=== PATIENT | female | born 1935 | race Caucasian/White ===

== ENCOUNTER 2018-01-27 07:38 | Emergency (ER) | payer MEDICARE, BC ==
[2018-01-27 08:43] LABS: CHLORIDE,CL 102 mmol/L (98-107); SODIUM,NA 138 mmol/L (136-145)
[2018-01-27 08:47] VITALS: BP 140/77
--- NOTE | 2018-01-27 09:06 | EDM.PDOC ---
ED HPI GENERAL MEDICAL PROBLEM - General Chief Complaint: Back Pain or Injury Stated Complaint: back pain Time Seen by Provider: 01/27/18 08:10 Source of Information: Reports: Patient History Limitations: Reports: No Limitations - History of Present Illness INITIAL COMMENTS - FREE TEXT/NARRATIVE: Patient is a 83-year-old female who was brought in by a friend with chief complaint of back pain apparently the patient and night bit her tongue and it was noted that the cheeks or bloody stool and brought her in for evaluation at this time the patient admits to history of seizure disorder about 6-7 years ago she was placed gabapentin 300 twice a day and was seizure-free until now I feel that this was a seizure secondary to symptoms that she presented bleeding from the tongue and back pain from spasming at this time we will change her medications and to CBC and BMP Onset: Today Duration: Hour(s):, Improving Location: Reports: Back Quality: Reports: Ache, Burning Severity: Moderate Improves with: Reports: Cold Therapy, Heat Therapy, Other (Put icy hot on her back and took Tylenol) Worsens with: Reports: Movement Context: Reports: Other (Seizure) Treatments 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(s) Upper Posterior Back Pain Score (Numeric/FACES): 7 - Related Data Allergies Allergy/AdvReac Type Severity Reaction Status Date / Time rosuvastatin calcium Allergy Unknown abdominal Verified 06/18/15 08:11 [From Crestor] pain and bloating atorvastatin calcium Allergy muscle pain Verified 06/18/15 08:11 [From Lipitor] cholestyramine Allergy Unknown Verified 06/18/15 08:11 [From Questran] diltiazem Allergy Unknown Verified 06/18/15 08:11 estrogens, conjugated Allergy Unknown Verified 06/18/15 08:11 [From Premarin] imipramine [Imipramine] Allergy Unknown Verified 06/18/15 08:11 Latex, Natural Rubber Allergy Rash Verified 06/18/15 08:11 nitrofurantoin Allergy Unknown Verified 06/18/15 08:11 Penicillins Allergy rash, hives Verified 06/18/15 08:11 phenytoin sodium Allergy Dizziness Verified 06/18/15 08:11 [From Dilantin] phenytoin sodium extended Allergy unknown Verified 06/18/15 08:11 [From Dilantin] sucrose [From Questran] Allergy Unknown Verified 06/18/15 08:11 Home Meds: Home Meds Acetaminophen [Tylenol Extra Strength] 2 tab PO Q6HR PRN 08/13/14 [History] Aspirin [Halfprin] 81 mg PO BEDTIME 08/13/14 [History] Calcium Citrate/Vitamin D3 [Calcium Citrate - Vit D Caplet] 1 tab PO DAILY@1200 08/13/14 [History] Gabapentin [Neurontin] 300 mg PO BID 08/13/14 [History] Levothyroxine [Synthroid] 88 mcg PO ACBRK 08/13/14 [History] Lutein 1 tab PO DAILY 08/13/14 [History] Metoprolol Succinate [Toprol XL] 50 mg PO QAM 08/13/14 [History] [place]-3 Fatty Acids [[place]-3] 1 cap PO BEDTIME 08/13/14 [History] Omeprazole [Prilosec] 20 mg PO DAILY PRN 08/13/14 [History] Ubidecarenone [Coenzyme Q10] 100 mg PO BEDTIME 08/13/14 [History] Past Medical History Cardiovascular History: Reports: Hypertension Gastrointestinal History: Reports: GERD Musculoskeletal History: Reports: Arthritis Neurological History: Reports: Seizure Endocrine/Metabolic History: Reports: Hypothyroidism Other Dermatologic History: epidermal cyst - Infectious Disease History Infectious Disease History: Reports: Chicken Pox, Measles, Mumps, Rubella, Scarlet Fever - Past Surgical History GI Surgical History: Reports: Appendectomy, Colonoscopy, EGD Social & Family History - Tobacco Use Smoking Status *Q: Never Smoker - Caffeine Use Caffeine Use: Reports: Coffee - Alcohol Use Days Per Week of Alcohol Use: 0 - Recreational Drug Use Recreational Drug Use: No ED ROS GENERAL - Review of Systems Review Of Systems: See Below Constitutional: Reports: No Symptoms HEENT: Reports: No Symptoms Respiratory: Reports: No Symptoms Cardiovascular: Reports: No Symptoms Endocrine: Reports: No Symptoms GI/Abdominal: Reports: No Symptoms : Reports: No Symptoms Musculoskeletal: Reports: Back Pain (Secondary to) Skin: Reports: No Symptoms Neurological: Reports: Seizure (History of seizure) Psychiatric: Reports: No Symptoms Immunologic: Reports: No Symptoms ED EXAM, GENERAL - Physical Exam Exam: See Below Exam Limited By: No Limitations General Appearance: Alert, WD/WN, No Apparent Distress Ears: Normal External Exam, Normal Canal, Hearing Grossly Normal, Normal TMs Nose: Normal Inspection, Normal Mucosa, No Blood Throat/Mouth: Inflammation (Inflammation of tongue secondary to bite), Other ( Blood). No: Normal Oropharynx (Patient had bite jesus on her tongue) Head: Atraumatic, Normocephalic Neck: Normal Inspection, Supple, Non-Tender, Full Range of Motion Respiratory/Chest: No Respiratory Distress, Lungs Clear, Normal Breath Sounds, No Accessory Muscle Use, Chest Non-Tender Cardiovascular: Normal Peripheral Pulses, Regular Rate, Rhythm, No Edema, No Gallop, No JVD, No Murmur, No Rub GI/Abdominal: Normal Bowel Sounds, Soft, Non-Tender, No Organomegaly, No Distention, No Abnormal Bruit, No Mass (Female) Exam: Deferred Rectal (Female) Exam: Deferred Back Exam: Normal Inspection, Decreased Range of Motion, Muscle Spasm Extremities: Normal Inspection, Normal Range of Motion, Non-Tender, Normal Capillary Refill, No Pedal Edema Neurological: Alert, Oriented, CN II-XII Intact, Normal Cognition, Normal Gait, Normal Reflexes, No Motor/Sensory Deficits Psychiatric: Normal Affect, Normal Mood Skin Exam: Warm, Dry, Intact, Normal Color, No Rash Lymphatic: No Adenopathy ED GENERAL MEDICAL PROCEDURES - Additional/Other Procedure(s) Other (Free Text) Procedure(s): Assessment polycythemia we will go ahead and do a phlebotomy about 500 mL's secondary to polycythemia hemoglobin 18.3 hematocrit 54.5 patient will be referred to hematology oncology for further workup Course - Vital Signs Last Recorded V/S: Last Vital Signs Temp 97.9 F 01/27/18 07:38 Pulse 93 01/27/18 08:46 Resp 20 01/27/18 08:46 BP 140/77 01/27/18 08:46 Pulse Ox 94 L 01/27/18 08:46 - Orders/Labs/Meds Orders: Active Orders 24 hr Category Date Time Status Communication Order [RC] STAT Care 01/27/18 08:55 Ordered CBC WITH AUTO DIFF [HEME] Stat Lab 01/27/18 08:59 Ordered UA W/MICROSCOPIC [URIN] Stat Lab 01/27/18 08:10 Ordered Labs: Laboratory Tests 01/27/18 01/27/18 Range/Units 08:20 08:20 WBC 24.4 H (4.0-10.2) K/uL RBC 6.25 H (3.77-5.09) M/uL Hgb 18.3 H* (11.7-15.5) g/dL Hct 54.5 H (34.0-46.0) % MCV 87.2 (84.0-98.0) fL MCH 29.3 (28.2-33.3) pg MCHC 33.6 (31.7-36.0) g/dL RDW 16.2 H (11.2-14.1) % Plt Count 263 (150-350) K/uL Neut % (Auto) 88.9 H (45.0-80.0) % Lymph % (Auto) 5.2 L (10.0-50.0) % [place] % (Auto) 5.3 (2.0-14.0) % Eos % (Auto) 0.2 (0.0-5.0) % Baso % (Auto) 0.4 (0.0-2.0) % Neut # (Auto) 21.69 H (1.40-7.00) K/uL Lymph # (Auto) 1.28 (0.50-3.50) K/uL [place] # (Auto) 1.30 H (0.00-1.00) K/uL Eos # (Auto) 0.04 (0.00-0.50) K/uL Baso # (Auto) 0.10 (0.00-0.20) K/uL Sodium 138 (136-145) mmol/L Potassium 4.9 (3.5-5.1) mmol/L Chloride 102 (98-107) mmol/L Carbon Dioxide 27.8 (21.0-32.0) mmol/L BUN 29 H (7-18) mg/dL Creatinine 0.80 (0.51-1.17) mg/dL Est Cr Clr Drug Dosing 38.27 mL/min Estimated GFR (MDRD) > 60 mL/min Glucose 133 H (74-106) mg/dL Calcium 8.7 (8.5-10.1) mg/dL Total Bilirubin 0.7 (0.2-1.0) mg/dL AST 33 (15-37) U/L ALT 24 (12-78) U/L Alkaline Phosphatase 99 (46-116) IU/L Total Protein 7.5 (6.4-8.2) g/dL Albumin 3.6 (3.4-5.0) g/dL Departure - Departure Time of Disposition: 10:00 Disposition: Home, Self-Care 01 Condition: Good Clinical Impression: Seizures, Polycythemia - Discharge Information Referrals: Humberto Valdivia PA [Primary Care Provider] - Care Plan Goals: Patient seen in the ER secondary to possible seizure disorder patient had a seizure 6-7 years ago was placed on gabapentin and did well until now at this time I feel that gabapentin is not a good monotherapy drug and she should be changed to Keppra 500 mg twice a day as she should see a neurologist at this time patient should not drive for 6 months Polycythemia patient's hemoglobin was 18.3 and her hematocrit 54.5 at this time I feel that this is a new event and we will go ahead and do a phlebotomy in the ER patient should be seen by boiler operator in the next few days to weeks for workup if any questions please call Humberto Titus or myself. - My Orders Last 24 Hours: My Active Orders 01/27/18 08:10 UA W/MICROSCOPIC [URIN] Stat 01/27/18 08:55 Communication Order [RC] STAT 01/27/18 08:59 CBC WITH AUTO DIFF [HEME] Stat - Assessment/Plan Last 24 Hours: My Active Orders 01/27/18 08:10 UA W/MICROSCOPIC [URIN] Stat 01/27/18 08:55 Communication Order [RC] STAT 01/27/18 08:59 CBC WITH AUTO DIFF [HEME] Stat
== END 2018-01-27 10:40 | disposition home or self-care (01) ==
LOC: LL.ED 07:38
DX: R56.9 Unspecified convulsions (principal); D75.1 Secondary polycythemia; I10 Essential (primary) hypertension; K21.9 Gastro-esophageal reflux disease without esophagitis; E03.9 Hypothyroidism, unspecified; Z79.899 Other long term (current) drug therapy; Z79.82 Long term (current) use of aspirin; Z88.8 Allergy status to other drugs, medicaments and biological substances; Z88.0 Allergy status to penicillin; Z91.040 Latex allergy status
CPT/HCPCS: 36415; 80053; 85025; 99195; 99284

== ENCOUNTER 2019-04-04 09:13 | Day surgery (SDC) | payer MEDICARE, BC ==
[~2019-04-04 09:13] MED LIST: Propofol 200 MG/20 ML SDV ONE
[2019-04-04] MEDS ORDERED: Lactated Ringers 1,000 ML IV SCH (09:30)
[2019-04-04] MEDS ORDERED: Sodium Chloride 0.9% 10 ML Syringe FLUSH PRN (09:30)
[2019-04-04] MEDS ORDERED: Propofol 200 MG/20 ML SDV ONE ×2 (10:20→10:22)
--- NOTE | 2019-04-04 10:56 | PCM.HPR ---
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
--- NOTE | 2019-04-04 10:58 | PCM.OPNOTE ---
- General Post-Op/Procedure Note Date of Surgery/Procedure: 04/04/19 Operative Procedure(s): EGD with Bx. Colonoscopy Findings: Hiatal Hernia Sig Tics Pre Op Diagnosis: Hx Guerrero's. Hx Colon Polyps Post-Op Diagnosis: Same Anesthesia Technique: MAC Primary Surgeon: Petar Donald Anesthesia Provider: Svetlana Castro Complications: None Condition: Good
[2019-04-04 15:36] VITALS: BP 143/74
--- NOTE | 2019-04-05 09:08 | OR ---
Date of Procedure: 04/04/2019 PREOPERATIVE DIAGNOSES: 1. History of Guerrero esophagus. 2. History of colon polyps. POSTOPERATIVE DIAGNOSES: 1. Hiatal hernia. 2. Sigmoid diverticulosis. PROCEDURES: 1. Esophagogastroduodenoscopy with biopsy. 2. Colonoscopy. ANESTHESIA: IV sedation. DESCRIPTION OF PROCEDURE: The patient was brought to the procedure room where she was placed on her left side and IV sedation administered. Oral bite block was placed and the upper endoscope advanced into the esophagus under direct vision without difficulty. Vocal cords were viewed and were normal. Scope was advanced to the third portion of the duodenum. Duodenum and pylorus were normal. Antrum and body of the stomach were normal. Retroflexion reveals a normal-appearing fundus and a moderate-sized hiatal hernia. The squamocolumnar junction was located at 31 cm from the incisors and diaphragmatic opening was approximately 36 cm from the incisors making it a 5 cm hiatal hernia. The squamocolumnar junction appeared regular and I did not see any obvious evidence of Guerrero changes. Because of her history, I did 4 random biopsies in each quadrant of the distal esophagus at 29 cm. Air was removed from the stomach and the scope withdrawn through the remaining esophagus which appeared normal. The patient tolerated this portion of the procedure well. Next, colonoscopy was performed after digital rectal exam was performed which was normal. Colonoscope was inserted and advanced to the level of the cecum with some difficulty getting through a tortuous colon requiring some pressure on the abdomen. I was able to reach the cecum which was confirmed by identifying the appendiceal lumen and the ileocecal valve. Prep was good and surfaces were well visualized. Upon withdrawing the scope, the ascending, transverse, and descending colon were normal in appearance. Sigmoid colon had a few diverticula present. Rectum was normal and retroflexion was normal. Air was removed and the scope withdrawn. The patient tolerated the procedure well and returned to Recovery in stable condition. The patient will follow up with Humberto Valdivia next week for review of pathology report. Assuming no concerning changes are present on her esophageal biopsies. I do not feel any further Guerrero surveillance is necessary. No further colonoscopies are necessary due to the patient's age. REBECCA HUGHES MD /[id number]
== END 2019-04-04 12:04 | disposition home or self-care (01) ==
LOC: LL.SDS 09:13
PROVIDERS: ATTEND Surgery
DX: Z12.11 Encounter for screening for malignant neoplasm of colon (principal); Z86.010 Personal history of colon polyps; K57.30 Diverticulosis of large intestine without perforation or abscess without bleeding; K44.9 Diaphragmatic hernia without obstruction or gangrene; D45 Polycythemia vera; R56.9 Unspecified convulsions; R73.9 Hyperglycemia, unspecified; M54.5 Low back pain; I10 Essential (primary) hypertension; E78.5 Hyperlipidemia, unspecified; E03.9 Hypothyroidism, unspecified; Z87.19 Personal history of other diseases of the digestive system; Z80.0 Family history of malignant neoplasm of digestive organs; Z88.0 Allergy status to penicillin; Z88.8 Allergy status to other drugs, medicaments and biological substances; Z91.040 Latex allergy status; Z79.82 Long term (current) use of aspirin; Z79.891 Long term (current) use of opiate analgesic
CPT/HCPCS: 00813; 88305; J2704; J7120

== ENCOUNTER → 2019-09-23 | Outpatient (CLI) | payer MEDICARE, BC | LOC: LL.LAB 10:01 | PROVIDERS: ATTEND Physician Assistant | DX: D45 Polycythemia vera (principal) | CPT/HCPCS: 36415; 85014; 85018; 99195 ==

== ENCOUNTER 2022-10-10 22:52 | Emergency (ER) | payer MEDICARE, BC ==
[2022-10-10 22:56] VITALS: PULSE 81
[2022-10-10] MEDS ORDERED: traMADol 50 MG Tab PO ONE (23:53)
[2022-10-10] MEDS ORDERED: predniSONE 20 MG Tab PO ONE (23:54)
[2022-10-11 00:36] VITALS: BP 144/64
== END 2022-10-11 00:30 | disposition home or self-care (01) ==
LOC: LL.ED 22:52
DX: G89.29 Other chronic pain (principal); M25.511 Pain in right shoulder; I10 Essential (primary) hypertension; M19.90 Unspecified osteoarthritis, unspecified site; E03.9 Hypothyroidism, unspecified; Z88.8 Allergy status to other drugs, medicaments and biological substances; Z91.040 Latex allergy status; Z88.0 Allergy status to penicillin; Z79.82 Long term (current) use of aspirin; Z79.899 Other long term (current) drug therapy
CPT/HCPCS: 73030-RT; 93005; 93010; 99283; A9270-GY; J7512